=== PATIENT | female | born 1935 | race Caucasian/White ===

== ENCOUNTER → 2016-09-16 | Outpatient (CLI) | payer OTHER ==
[~2016-09-16] MED LIST: CELEBREX PO; FOLIC ACID PO; FOSAMAX PO; METHOTREXATE2.5 MG PO; PLAQUENIL200 MG PO; ULTRAM PO
--- NOTE | ~2016-09-16 | CT96 ---
[facility] A Service of [facility] RADIOLOGY TEXT RESULTS PATIENT: NEGRITA SMITH LOCATION: [facility] : 37 UNIT #: [id number] AGE: [address]: John Travis Jr, MD SEX: F ORDER DR: [id number] [facility] [address] [place], [place] [address] [id number] O MR#: [id number] Acc #: [id number] NAME: NEGRITA SMITH : 1935 SEX: F STUDY DATE/TIME: 09/16/2016 11:53 UNIT: [facility] ROOM: STUDY DESCRIPTION: CT Lumbar Spine W Cont Attending Physician: John Travis Jr., M.D. Referring Physician: John Travis Jr., M.D. Ordering Physician: John Travis Jr., M.D. Primary Care Physician: Anshul Dalton III, M.D. MEDICAL IMAGING REPORT This report is preliminary unless electronic signature is present EXAM Lumbar spine CT with contrast DATE OF STUDY 09/16/2016 PROCEDURE Axial contrast-enhanced lumbar CT with multiplanar reformats. This CT exam was performed with one or more of the following radiation dose reduction techniques: Automatic exposure control, adjustment of mA and/or kV according to patient size, and iterative reconstruction. COMPARISON Prior CT abdomen and pelvis dated 08/23/2016. CLINICAL HISTORY Right hip pain since fall on 08/12/2016. FINDINGS There is a marked lumbar dextroscoliosis but no karen- or retrolisthesis. There is a T12 compression fracture with about 50% height loss, unchanged since the prior CT as well. No other evidence of compression fracture is seen. 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 Horizontal component is not necessarily seen. This is clearly new since the prior CT exam. There is a right and left pleural effusions and basilar atelectasis or infiltrate but incompletely evaluated here. IMPRESSION [facility] A Service of [facility] RADIOLOGY TEXT RESULTS PATIENT: NEGRITA SMITH LOCATION: [facility] : 37 UNIT #: [id number] AGE: [address]: John Travis Jr, MD SEX: F ORDER DR: 1. Marked scoliosis and stable chronic T12 compression fracture, consistent with an rzzdl-ip-[id number] sacral insufficiency fracture. There are bilateral vertical sacral components. Horizontal components is not suspected here. Again, this is clearly new since the study of 08/23/2016. 3. There are also pleural effusions, but no abnormal contrast enhancement is seen. STAT * RESULT Dictated by... Grupo Patel M.D. THIS IS AN ELECTRONICALLY VERIFIED REPORT Grupo Patel M.D. at 09/17/2016 2:11 PM TEV/kalpesh TD: 09/16/2016 14:12 JOB #: [id number] MEDICAL IMAGING REPORT Page 1 of 1 COPY
--- NOTE | ~2016-09-16 | CT105 ---
[facility] A Service of [facility] RADIOLOGY TEXT RESULTS PATIENT: NEGRITA SMITH LOCATION: [facility] : 37 UNIT #: [id number] AGE: [address]: John Travis Jr, MD SEX: F ORDER DR: [id number] [facility] [address] [place], [place] [address] [id number] O MR#: [id number] Acc #: [id number] NAME: NEGRITA SMITH : 1935 SEX: F STUDY DATE/TIME: 09/16/2016 11:53 UNIT: [facility] ROOM: STUDY DESCRIPTION: CT Pelvis W Cont Attending Physician: John Travis Jr., M.D. Referring Physician: John Travis Jr., M.D. Ordering Physician: John Travis Jr., M.D. Primary Care Physician: Anshul Dalton III, M.D. MEDICAL IMAGING REPORT This report is preliminary unless electronic signature is present EXAM Pelvic CT with contrast 09/16/2016 TECHNIQUE Axial contrast-enhanced pelvic CT with multiplanar reformats. This CT exam was performed with one or more of the following radiation dose reduction techniques: Automatic exposure control, adjustment of mA and/or kV according to patient size, and iterative reconstruction. HISTORY Persistent right hip pain since fall on 08/22/2016. The patient has a 4-week history of a coccygeal decubitus ulcer and right leg pain for 4 weeks. FINDINGS The large pelvic hematoma seen on the prior study measuring about 15 x 9 cm is slightly more organized on the current exam and measures approximately 14 x 9 cm. There is now new increased displacement and deformity at the known left pubic body and left inferior ischial pubic ramus fracture or fractures. There is also new sacral insufficiency fracture with bilateral vertical sacral components and a horizontal component at the S3 level, not present at the time of the prior study. The known decubitus ulcer described in the history erodes down towards the lower sacrum with air in the soft tissue abutting the lower sacrum posteriorly. Bladder displacement by the pelvic hematoma is redemonstrated. There is no evidence of acetabular fracture involvement or femoral head or neck fracture on either side. IMPRESSION 1. Persistent large pelvic hematoma minimally if at all changed since STS. [facility] A Service of [facility] RADIOLOGY TEXT RESULTS PATIENT: NEGRITA SMITH LOCATION: [facility] : 37 UNIT #: [id number] AGE: [address]: John Travis Jr, MD SEX: F ORDER DR: 08/23/2016 but left inferior ischial pubic ramus and pubic body fractures show marked increase in displacement since the prior study, and there is a new sacral insufficiency fracture with a bilateral vertical sacral alar component and a horizontal component at S3. 2. No acetabular involvement or femoral head or neck fracture on either side. STAT * RESULT Dictated by... Grupo Patel M.D. THIS IS AN ELECTRONICALLY VERIFIED REPORT Grupo Patel M.D. at 09/17/2016 2:11 PM TEV/kalpesh TD: 09/16/2016 14:16 JOB #: [id number] MEDICAL IMAGING REPORT Page 1 of 1 COPY
[2016-09-16 11:38] LABS: HEMATOCRIT 38.9 % (35.0-45.0); HEMOGLOBIN 12.3 gm/dL (12.0-16.0); MEAN CELL VOLUME 90.6 FL (83-96); MEAN CORPUSCULAR HEMOGLOBIN 28.6 PG (28-34); MEAN CORPUSCULAR HGB CONC 31.6 g/dL (30-36); MEAN PLATELET VOLUME 7.8 FL (6.5-11.5); RED BLOOD COUNT 4.3 X10e (3.90-5.30); RED CELL DISTRIBUTION WIDTH 19.2 % (11.0-15.5); WHITE BLOOD COUNT 5.8 X10e3 (4.0-10.5)
[2016-09-16 12:02] LABS: BUN/CREATININE RATIO 36.66; CALCIUM SERUM 8.1 mg/dL (8.4-10.2); CREATININE SERUM 0.6 mg/dL (0.6-1.4); GLOM FILT RATE Estimated 87.3 mL/min (>60); POTASSIUM 3.3 mmol/L (3.5-5.1)
[2016-09-16 20:00] LABS: POC - CREATININE 0.55 mg/dL (0.44-1.03); POC - GFR >60.0 mL/min (>60)
== END | disposition home or self-care (01) ==
LOC: CCAT 10:32
PROVIDERS: Internal Medicine
DX: M25.551 Pain in right hip (principal); M41.9 Scoliosis, unspecified; M48.54XD Collapsed vertebra, not elsewhere classified, thoracic region, subsequent encounter for fracture with routine healing; J90 Pleural effusion, not elsewhere classified; L89.159 Pressure ulcer of sacral region, unspecified stage; S32.692D Other specified fracture of left ischium, subsequent encounter for fracture with routine healing; M84.48XD Pathological fracture, other site, subsequent encounter for fracture with routine healing
CPT/HCPCS: 72132; 72193; 80048; 82565; 85027; Q9967